=== PATIENT | female | born 1990 | race Caucasian/White ===

== ENCOUNTER 2017-11-02 21:40 | Emergency (ER) | payer OTHER ==
[~2017-11-02] VITALS: Ht 167.6 cm; Wt 65.0 kg
[2017-11-02 21:42] VITALS: BP 114/70; PULSE 69; RESP 16; TEMP 97.9; O2SAT 100
[2017-11-02] MEDS ORDERED: SODIUM CHLOR 0.9% 1000 ML INJ 1,000 ML IV ONE (22:15)
[2017-11-02] MEDS ORDERED: diphenhydrAMINE HCL 50 MG/ML VIAL IV PUSH STA (22:15)
[2017-11-02] MEDS ORDERED: KETOROLAC TROMETHAMINE 30 MG/ML (IVP) VIAL IVP ONE (22:15)
[2017-11-02] MEDS ORDERED: SODIUM CHLORIDE 0.9% FLUSH 10 ML FLUSH IVF PRN (22:15)
[2017-11-02] MEDS ORDERED: PROCHLORPERAZINE INJ 10 MG/2 ML VIAL IVP ONE (22:15)
--- NOTE | 2017-11-02 22:47 | PD ---
HPI Chief Complaint: Headache Time Seen by Provider: 22:05 Travel History International Travel<30 days: No Contact w/Intl Traveler<30days: No Traveled to known affect area: No History of Present Illness HPI Said 27 year-old woman, history of daily headache, seen physicians for headaches multiple times in the past, is been on Fioricet in the past, previous inpatient hospitalizations with negative workup including imaging and LP, presents ED with ongoing headache. She states she's had daily headaches for repeat quite some time, but it was more persistent today. She took Excedrin didn't help and she didn't want to take anymore [id number] medications so she came in tonight. A little bit of photophobia. No recent illness or injury. No associated neurologic complaints. No other medical problems. History Past Medical History Narrative Medical daily headache LMP: IUD Past Surgical History Surgical History: No Previous Surgery Social History Alcohol Use: No Tobacco Use: No Allergies-Medications (Allergen,Severity, Reaction): Coded Allergies: No Known Allergies (Verified Allergy, Unknown, 11/02/17) Reported Meds & Prescriptions Reported Meds & Active Scripts Active No Active Prescriptions or Reported Medications Review of Systems Except as stated in HPI: all other systems reviewed are Neg Physical Exam Narrative GENERAL: Well-appearing 27 year-old woman, no acute distress. SKIN: Focused skin assessment warm/dry. HEAD: Atraumatic. Normocephalic. EYES: Pupils equal and round. No scleral icterus. No injection or drainage. ENT: No nasal bleeding or discharge. Mucous membranes pink and moist. NECK: Trachea midline. No JVD. CARDIOVASCULAR: Regular rate and rhythm. No murmur appreciated. RESPIRATORY: No accessory muscle use. Clear to auscultation. Breath sounds equal bilaterally. GASTROINTESTINAL: Abdomen soft, non-tender, nondistended. Hepatic and splenic margins not palpable. MUSCULOSKELETAL: No obvious deformities. No clubbing. No cyanosis. No edema. NEUROLOGICAL: Awake and alert. No obvious cranial nerve deficits. Motor grossly within normal limits. Normal speech. PSYCHIATRIC: Appropriate mood and affect; insight and judgment normal. Data Data Last Documented VS Vital Signs Date Time Temp Pulse Resp B/P (MAP) Pulse Ox O2 Delivery O2 Flow Rate FiO2 11/02/17 21:42 97.9 69 16 114/70 (85) 100 Room Air Orders Orders Ecg Monitoring (11/02/17 22:15) Iv Access Insert/Monitor (11/02/17 22:15) Oximetry (11/02/17 22:15) Sodium Chloride 0.9% Flush (Ns Flush) (11/02/17 22:15) Ketorolac Inj (Toradol Inj) (11/02/17 22:15) Prochlorperazine Inj (Compazine Inj) (11/02/17 22:15) Sodium Chlor 0.9% 1000 Ml Inj (Ns 1000 M (11/02/17 22:15) Diphenhydramine Inj (Benadryl Inj) (11/02/17 22:15) MDM Medical Decision Making Medical Screen Exam Complete: Yes Emergency Medical Condition: Yes Differential Diagnosis Headache, migraine, dictation rebound headache, pseudotumor, other Narrative Course Well-appearing 19-year-old with chronic daily headache, ear for the same. She' ll need follow-up with neurology. She'll likely benefit from prophylactic medication. There is no red flag symptoms to suggest neurologic emergency. She may have some component of medication rebound headache. Diagnosis Primary Impression: Headache Referrals: Lyle Coffey MD PhD call for appointment Patient Instructions: General Instructions Additional Instructions: Follow-up with Dr. Coffey for further evaluation for headaches. Return to the emergency department for any new or worsening symptoms. Med/Other Pt SpecificInfo: No Change to Meds Scripts No Active Prescriptions or Reported Meds Disposition: 01 DISCHARGE HOME Condition: Stable Jose Guadalupe Young MD Nov 02, 2017 22:47
== END 2017-11-02 23:30 | disposition home or self-care (01) ==
LOC: NEPD 21:40
DX: R51 Headache (principal)
CPT/HCPCS: 96361; 96374; 96375; 99284; J0780; J1200; J1885; J7030